=== PATIENT | female | born 1955 | race Caucasian/White ===

== ENCOUNTER → 2016-10-09 | Outpatient (CLI) | payer OTHER | END | disposition home or self-care (01) | LOC: RAD 11:55 | PROVIDERS: ATTEND Neurological Surgery | DX: M41.86 Other forms of scoliosis, lumbar region (principal) | CPT/HCPCS: 72082 ==

== ENCOUNTER → 2017-03-24 | Outpatient (CLI) | payer OTHER | LOC: RAD 12:18 | PROVIDERS: ATTEND Radiology Diagnostic Radiology | DX: M47.896 Other spondylosis, lumbar region (principal); M47.894 Other spondylosis, thoracic region; M48.06 Spinal stenosis, lumbar region; M48.05 Spinal stenosis, thoracolumbar region; M48.02 Spinal stenosis, cervical region; M25.78 Osteophyte, vertebrae; Z90.49 Acquired absence of other specified parts of digestive tract; Z98.890 Other specified postprocedural states; Z98.1 Arthrodesis status | CPT/HCPCS: 72082; 72120 ==